=== PATIENT | male | born 1940 | race Caucasian/White ===

== ENCOUNTER 2017-04-15 12:36 | Inpatient (IN) | payer OTHER ==
[~2017-04-15] VITALS: Ht 182.9 cm; Wt 60.0 kg
[2017-04-15 14:10] LABS: Basophils # (auto) 0 uL; Basophils % (auto) 0.5 % (0.0-2.0); Eosinophils # (auto) 0 uL; Eosinophils % (auto) 0.5 % (0.0-7.0); Hematocrit 37.3 % (41.0-53.0); Hemoglobin 12.3 g/dL (13.5-17.5); Lymphocytes # (auto) 0.7 uL; Lymphocytes % (auto) 7.7 % (10.0-50.0); Mean Corpuscular Hemoglobin 31.3 pg (28.0-32.0); Mean Corpuscular Hgb Conc. 32.9 g/dL (32.0-36.0); Mean Platelet Volume 7.4 fL (7.4-10.4); Monocytes # (auto) 0.5 uL; Monocytes % (auto) 5.1 % (0.0-12.0); Neutrophils # (auto) 8.1 uL; Neutrophils % (auto) 86.2 % (37.0-80.0); Platelet Count (auto) 221 10^3/uL (140-450); Red Cell Distribution Width 18.3 % (11.6-16.0); White Blood Cell 9.4 10^3/uL (4.4-10.8)
[2017-04-15] MEDS ORDERED: SODIUM CHLORIDE 0.9% 1,000 ML IVB ONE (14:35)
[2017-04-15] MEDS ORDERED: cefTRIAXone 1GM/50ML D5W 50 ML IV ONE (14:45)
[2017-04-15 14:46] LABS: Albumin 3.1 g/dL (3.4-5.0); BUN/Creatinine Ratio 19.8; Bilirubin, Total 0.4 mg/dL (0.2-1.0); Calcium 7.9 mg/dL (8.5-10.1); Magnesium 2.6 mg/dL (1.6-2.6); Potassium 4.7 mmol/L (3.5-5.1); Total Protein 6.1 g/dL (6.4-8.2)
[2017-04-15] MEDS ORDERED: ALBUTEROL SULF 2.5 MG/0.5ML(0.5%) NEB SOLN NEB ONE (15:15)
[2017-04-15] MEDS ORDERED: IPRATROPIUM BROM 0.5 MG/2.5ML INH SOL NEB ONE (15:15)
[2017-04-15] MEDS ORDERED: AZITHROMYCIN 500MG/D5W 250ML 250 ML IV ONE (16:00)
[2017-04-15] MEDS ORDERED: TEMAZEPAM 15 MG CAP PO PRN (16:15)
[2017-04-15] MEDS ORDERED: ACETAMINOPHEN 325 MG TAB PO PRN (16:15)
[2017-04-15] MEDS ORDERED: ALPRAZolam 0.25 MG TAB PO PRN (16:15)
[2017-04-15] MEDS ORDERED: MORPHINE SULF INJ 2 MG/ML SYRINGE 1ML IV PRN ×2 (16:15)
[2017-04-15] MEDS ORDERED: DOCUSATE SOD 100 MG CAP PO PRN (16:15)
[2017-04-15] MEDS ORDERED: diphenhdrAMINE HCL 25 MG CAP PO PRN (16:15)
[2017-04-15] MEDS ORDERED: ONDANSETRON HCL 4 MG/2 ML VIAL IV PRN (16:15)
[2017-04-15] MEDS ORDERED: NITROGLYCERIN 0.4 MG SL TAB SL PRN (16:15)
[2017-04-15] MEDS ORDERED: cloNIDine HCL 0.1 MG TAB PO PRN (16:30)
[2017-04-15] MEDS: PANTOPRAZOLE 40 MG TAB PO SCH (16:40)
[2017-04-15] MEDS: BOOST PLUS 8 ounce PO SCH ×2 (18:00→22:00)
[2017-04-15 18:03] LABS: Lactic Acid w/Reflex 2.3 mmol/L (0.4-2.0)
[2017-04-15 18:04] LABS: REFLEX LACTIC ACID YES OR NO YES
[2017-04-15] MEDS: ALBUTEROL SULF 2.5 MG/0.5ML(0.5%) NEB SOLN NEB SCH (18:05)
[2017-04-15] MEDS: IPRATROPIUM BROM 0.5 MG/2.5ML INH SOL NEB SCH (18:05)
[2017-04-15 22:00] VITALS: BP 119/57
[2017-04-15] MEDS ORDERED: FAMOTIDINE 20 MG TAB PO SCH (22:00)
[2017-04-15] MEDS: MORPHINE SULF 15mg ER tab PO SCH (22:45)
[2017-04-15] MEDS: SODIUM CHLOR 0.9% PF (SALINE LOCK) 10ML VIAL IV SCH (22:50)
[2017-04-15 23:05] LABS: Urine Bilirubin Negative (Negative); Urine Blood Negative /uL (Negative); Urine Color Yellow (Yellow); Urine Glucose Normal (Normal); Urine Ketone Negative (Negative); Urine Mucus FEW (None Seen); Urine Nitrite Negative (Negative); Urine RBC 1 /hpf (0 - 3); Urine Squamous Epithelial Cell FEW /hpf (<5); Urine Urobilinogen Normal (Negative)
[2017-04-16] MEDS: ALBUTEROL SULF 2.5 MG/0.5ML(0.5%) NEB SOLN NEB SCH ×4 (00:40→18:45)
[2017-04-16] MEDS: IPRATROPIUM BROM 0.5 MG/2.5ML INH SOL NEB SCH ×4 (00:41→18:45)
[2017-04-16 02:07] VITALS: BP 122/91
[2017-04-16 05:00] VITALS: BP 125/69
[2017-04-16] MEDS: BOOST PLUS 8 ounce PO SCH ×4 (06:18→22:18)
[2017-04-16] MEDS: SODIUM CHLOR 0.9% PF (SALINE LOCK) 10ML VIAL IV SCH ×3 (06:18→22:18)
[2017-04-16 07:17] LABS: Basophils # (auto) 0 uL; Basophils % (auto) 0.5 % (0.0-2.0); Eosinophils # (auto) 0.2 uL; Eosinophils % (auto) 2.2 % (0.0-7.0); Hematocrit 34.7 % (41.0-53.0); Hemoglobin 11.5 g/dL (13.5-17.5); Lymphocytes # (auto) 0.6 uL; Lymphocytes % (auto) 7.9 % (10.0-50.0); Mean Corpuscular Hemoglobin 31.5 pg (28.0-32.0); Mean Corpuscular Hgb Conc. 33.2 g/dL (32.0-36.0); Mean Corpuscular Volume 94.8 fL (80.0-100.0); Mean Platelet Volume 8.1 fL (7.4-10.4); Monocytes # (auto) 0.4 uL; Monocytes % (auto) 5.6 % (0.0-12.0); Neutrophils # (auto) 6.5 uL; Neutrophils % (auto) 83.8 % (37.0-80.0); Platelet Count (auto) 203 10^3/uL (140-450); Red Cell Distribution Width 17.8 % (11.6-16.0); White Blood Cell 7.8 10^3/uL (4.4-10.8)
[2017-04-16 07:48] LABS: Albumin 2.9 g/dL (3.4-5.0); BUN/Creatinine Ratio 31.1; Calcium 8.5 mg/dL (8.5-10.1); Potassium 4.5 mmol/L (3.5-5.1)
[2017-04-16 07:51] LABS: Bilirubin, Total 0.3 mg/dL (0.2-1.0)
[2017-04-16 09:00] VITALS: BP 147/72
[2017-04-16] MEDS: HYDROcodone-ACET 7.5/325MG TAB PO PRN (09:21)
[2017-04-16] MEDS: FUROSEMIDE 40 MG/4 ML VIAL IV SCH ×2 (09:22→18:26)
[2017-04-16] MEDS: cefTRIAXone 1GM/50ML D5W 50 ML IV SCH (09:23)
[2017-04-16] MEDS: AZITHROMYCIN 500MG/D5W 250ML 250 ML IV SCH (10:41)
[2017-04-16] MEDS: PANTOPRAZOLE 40 MG TAB PO SCH (10:41)
[2017-04-16] MEDS: MORPHINE SULF 15mg ER tab PO SCH ×2 (10:42→22:22)
[2017-04-16] MEDS: METOPROLOL TARTRATE 25 MG TAB PO SCH ×2 (10:42→22:00)
[2017-04-16] MEDS: ASPirin-EC 81 mg tab PO SCH (10:43)
[2017-04-16] MEDS: MULTIPLE VITAMIN TAB PO SCH (10:43)
[2017-04-16] MEDS ORDERED: IBU100LQ PO (13:01)
[2017-04-16] MEDS ORDERED: HYDR-4663 PO (13:01)
[2017-04-16] MEDS ORDERED: MORP15TA PO (13:01)
[2017-04-16] MEDS ORDERED: GABA-494 PO (13:01)
[2017-04-16] MEDS ORDERED: PANT1INJ3 PO (13:01)
[2017-04-16] MEDS ORDERED: ALPR0.5T PO (13:01)
[2017-04-16] MEDS ORDERED: SENN8.6T11 PO (13:01)
[2017-04-16 15:08] VITALS: BP 140/85
[2017-04-16 17:04] VITALS: BP 114/69
[2017-04-16 21:35] VITALS: BP 111/71
[2017-04-17 05:04] VITALS: BP 109/67
[2017-04-17] MEDS: BOOST PLUS 8 ounce PO SCH ×2 (05:40→12:00)
[2017-04-17] MEDS: SODIUM CHLOR 0.9% PF (SALINE LOCK) 10ML VIAL IV SCH ×2 (05:40→14:00)
[2017-04-17] MEDS: FUROSEMIDE 40 MG/4 ML VIAL IV SCH (05:46)
[2017-04-17] MEDS: HYDROcodone-ACET 7.5/325MG TAB PO PRN (05:56)
[2017-04-17] MEDS ORDERED: TAMSULOSIN HYDROCHLORIDE 0.4 MG CAP PO ONE (06:00)
[2017-04-17 06:29] LABS: Potassium 3.9 mmol/L (3.5-5.1)
[2017-04-17] MEDS: methylPREDNISolone SOD SUCC 125 MG/2 ML VL IV SCH ×2 (06:31→15:28)
[2017-04-17 06:35] LABS: BUN/Creatinine Ratio 31.6; Calcium 9.1 mg/dL (8.5-10.1); Magnesium 2.4 mg/dL (1.6-2.6)
[2017-04-17] MEDS: ALBUTEROL SULF 2.5 MG/0.5ML(0.5%) NEB SOLN NEB SCH ×3 (07:00→12:30)
[2017-04-17] MEDS: IPRATROPIUM BROM 0.5 MG/2.5ML INH SOL NEB SCH ×3 (07:00→12:30)
[2017-04-17] MEDS: cefTRIAXone 1GM/50ML D5W 50 ML IV SCH (09:30)
[2017-04-17] MEDS: AZITHROMYCIN 500MG/D5W 250ML 250 ML IV SCH (10:21)
[2017-04-17] MEDS: METOPROLOL TARTRATE 25 MG TAB PO SCH (10:22)
[2017-04-17] MEDS: ASPirin-EC 81 mg tab PO SCH (10:23)
[2017-04-17] MEDS: MORPHINE SULF 15mg ER tab PO SCH (10:23)
[2017-04-17] MEDS: MULTIPLE VITAMIN TAB PO SCH (10:23)
[2017-04-17] MEDS: PANTOPRAZOLE 40 MG TAB PO SCH (10:23)
[2017-04-17 15:43] VITALS: BP 128/74
== END 2017-04-17 19:26 | disposition hospice, home (50) | DRG 871 ==
LOC: EDBD 12:36 → ER 12:43 → TELE 12:44 → TELE-EAST 21:52
PROVIDERS: ADMIT Internal Medicine; ATTEND Family Medicine
DX: A41.9 Sepsis, unspecified organism (principal); J18.9 Pneumonia, unspecified organism; J96.21 Acute and chronic respiratory failure with hypoxia; G92 Toxic encephalopathy; E44.0 Moderate protein-calorie malnutrition; N18.4 Chronic kidney disease, stage 4 (severe); Z68.1 Body mass index [BMI] 19.9 or less, adult; I12.9 Hypertensive chronic kidney disease with stage 1 through stage 4 chronic kidney disease, or unspecified chronic kidney disease; E87.70 Fluid overload, unspecified; J45.909 Unspecified asthma, uncomplicated; E83.51 Hypocalcemia; F32.9 Major depressive disorder, single episode, unspecified; D63.1 Anemia in chronic kidney disease; E78.5 Hyperlipidemia, unspecified; N40.0 Benign prostatic hyperplasia without lower urinary tract symptoms; Z51.5 Encounter for palliative care; R78.89 Finding of other specified substances, not normally found in blood; Z82.49 Family history of ischemic heart disease and other diseases of the circulatory system; Z85.828 Personal history of other malignant neoplasm of skin; Z87.891 Personal history of nicotine dependence; Z79.899 Other long term (current) drug therapy; Z85.118 Personal history of other malignant neoplasm of bronchus and lung
CPT/HCPCS: 36415; 51702; 70450; 71010; 71250; 80048; 80053; 81001; 82962; 83605; 83735; 84484; 85025; 87040; 87086; 93005; 94640; 95819; 96365; 96366; 96368; 97163; 99291; J0696; J2405